=== PATIENT | male | born 1955 | race Caucasian/White ===

== ENCOUNTER → 2016-07-23 | Outpatient (CLI) | payer BC ==
[2016-07-23 09:44] LABS: ALT/SGPT 65 U/L (12-78); BLOOD UREA NITROGEN 24 mg/dl (7-18); BUN/CREATININE RATIO 18.7 (10-20); CALCIUM 8.9 mg/dl (8.5-10.1); CARBON DIOXIDE 27 mmol/L (21-32); CHLORIDE 106 mmol/L (98-107); CHOLESTEROL 149 mg/dl (0-200); GLUCOSE 127 mg/dl (70-99); POTASSIUM 3.7 mmol/L (3.5-5.1); SODIUM 143 mmol/L (136-145)
[2016-07-23 09:47] LABS: ALB/GLOB RATIO 1.1 (0.9-2); ALKALINE PHOSPHATASE 50 U/L (45-117); AST/SGOT 38 U/L (15-37); CHOLESTEROL/HDL RATIO 3.6; HDL CHOLESTEROL 41 mg/dl; LDL CHOLESTEROL CALCULATED 89 mg/dl; TRIGLYCERIDES 96 mg/dl (0-150); VERY LOW DENSITY LIPOPROT CALC 19 mg/dl
[2016-07-23 09:48] LABS: ESTIMATED AVERAGE GLUCOSE 126 mg/dl; HA1C FLAG Normal (Normal)
== END | disposition home or self-care (01) ==
LOC: C.LAB1850 08:06
PROVIDERS: ATTEND Family Medicine
DX: I10 Essential (primary) hypertension (principal); R73.03 Prediabetes; R74.0 Nonspecific elevation of levels of transaminase and lactic acid dehydrogenase [LDH]; E78.5 Hyperlipidemia, unspecified

== ENCOUNTER 2020-12-27 13:27 | Inpatient (IN) ==
[2020-12-27 15:13] LABS: Basophils # (auto) 0.02 K/uL (0-0.2); Basophils % (auto) 0.3 %; Eosinophils # (auto) 0.17 K/uL (0-0.5); Hematocrit (blood only) 39.9 % (42-52); Hemoglobin 13.7 g/dL (14.0-18.0); Immature Granulocytes # (auto) 0.01 K/uL (0.00-0.02); Immature Granulocytes % (auto) 0.2 %; Lymphocytes # (auto) 1.14 K/uL (1.2-3.4); Lymphocytes % (auto) 19.8 %; Mean Corpuscular Hemoglobin 31.9 pg (25-34); Mean Corpuscular Hgb Conc 34.3 g/dL (32-36); Mean Platelet Volume 10.3 fL (7.4-10.4); Monocytes # (auto) 0.71 K/uL (0.11-0.59); Monocytes % (auto) 12.3 %; Neutrophils % (auto) 64.4 %; Platelet Count 241 K/uL (130-400); RDW Coefficient of Variation 13.7 % (11.5-14.5); RDW Standard Deviation 46.8 fL (36.4-46.3); Red Blood Count 4.29 M/uL (4.7-6.1); White Blood Count 5.75 K/uL (4.8-10.8)
[2020-12-27 15:23] LABS: Partial Thromboplastin Ratio 0.9; Partial Thromboplastin Time 24.8 Seconds (21.0-31.0); Prothrombin Time 10.2 Seconds (9.0-12.0)
[2020-12-27 15:33] LABS: Albumin Level 3.9 gm/dl (3.4-5.0); Calcium 9.4 mg/dl (8.5-10.1); Creatinine Clr Calc Pharmacy 55.9 ml/min; Est GFR (Non-African American) 42.3 ml/min; Magnesium 2.1 mg/dl (1.8-2.4); Potassium 4.3 mmol/L (3.5-5.1)
[2020-12-27 15:40] LABS: Albumin Globulin Ratio 0.9 (0.9-2); Bilirubin,Total 1.5 mg/dl (0.2-1); Globulin 4.2 gm/dl (2.5-4.0); Total Protein 8.1 gm/dl (6.4-8.2); Troponin I 0.196 ng/ml (0-0.045)
--- NOTE | 2020-12-27 15:46 | Emergency Department Note ---
Impression & Plan Hypoxia, Non-ST elevation [place] (NSTEMI), Breathlessness, Dizziness, Pulmonary embolism ED Provider Note Provider: Matthew Camacho MD DATE OF SERVICE: 12/27/2020 CHIEF COMPLAINT: Short of breath, dizzy HISTORY OF PRESENT ILLNESS: Patient is a 65-year-old gentleman history of CKD, hypertension, hepatic steatosis presenting here today reporting over the past 5 days has developed some intermittent episodes of dizziness. States on Wednesday he became quite unsteady and was holding onto things but did fall to the ground. States he not lose consciousness or strike his head. Injured both of his feet states his right foot healed pretty well but the left top of his foot hurts some. Has been ambulatory but not using a cane to help steady himself. Wednesday, Wednesday, and things were very minimal he reports. Today however he went out for lunch at work and both going to the restaurant as well as coming back from the restaurant back to work felt very dizzy as well as now developed significant shortness of breath. This was new. Previously did not have any shortness of breath. Denies any chest pain. Denies any nausea or vomiting. Denies any falls today. Given his shortness of breath called a coworker who called an ambulance for him to come here. Denies significant leg swelling otherwise. Does report in the past he has some orthostasis issues related to his blood pressure medicine but this is changed several months ago and has not had recurrence. States prickly today the dizziness and now shortness of breath did not maggy very quickly until he rested. Denies any nu mbness or weakness. Denies any tinnitus. Denies recent fevers. States he has been vaccinated for Covid previously. REVIEW OF SYSTEMS: A total of 10 review of systems was obtained and negative except as stated above in the HPI. PAST MEDICAL HISTORY: As noted above MEDICATIONS: Reviewed home medications SOCIAL HISTORY: Non-smoker, lives at home Family history: Father with cardiac disease, mother with history of VTE PHYSICAL EXAM: GENERAL: alert and oriented in no acute distress on stretcher Head: normocephalic and atraumatic EYES: No injection, discharge or icterus. PERRL NECK: Trachea midline. Supple. ENT: Mucous membranes pink and moist. LUNGS: Airway patent. No retractions. Breath sounds clear HEART: Regular tachycardic rate and rhythm. No chest wall tenderness ABDOMEN: Soft and non-tender, without guarding or rebound. SKIN: Acyanotic, warm, dry, without rashes EXTREMITIES: Without swelling, tenderness or deformity except for some mild partially healed bruising of the left anterior MTP area and medial arch to the dorsum of the first and second left toes. No obvious deformity. No ankle tenderness the bilateral ankles. NEUROLOGICAL: No focal deficits. No aphasia. No facial droop or slurred speech. EK bpm normal sinus rhythm. No PVC or PAC. No acute ST segment elevation noted or depression. QTC 459. CONTINUOUS CARDIAC MONITORING: was ordered and showed a heart rate of 90s-120s bpm in normal sinus rhythm to sinus tachycardia Patient's laboratory studies and imaging reviewed. Differential includes Reactive airway disease, pneumonia, pneumothorax, COPD, CHF, infections, cardiac ischemia, pulmonary embolism, musculoskeletal, gastrointestinal, as well as other pathologies. IMPRESSION/MEDICAL DECISION MAKING: Patient is a complaining of dizziness on Wednesday and then again recurrent today now with shortness of breath with ambulation. Describes a minimal fall the other day but a little bit of persistent left foot pain. No obvious deformity l ower suspicion for significant injury but x-rays obtained of the foot. X-rays question possible base lucency at the fourth metatarsal but no significant tenderness here on exam believe is likely artifactual. Discussed with the patient. Denies other infectious symptomatologies. Noted to be hypoxic here on room air. CKD but with the hypoxia as well as an elevated troponin of blood work concern for PE and sent for CT scan here as well as a CT of the head exclude intercranial abnormality. EKG without STEMI findings. Patient again denies any episodes currently or in the recent past of chest discomfort. Benign abdomen otherwise. Covid test completed for thoroughness and was negative. Que stion of possible pulmonary or cardiac etiology of his dizziness and shortness of breath today. Chest x-ray appears clear per radiology and my review the image. CT head per radiologist acute findings. CT of the chest shows evidence of significant bilateral PEs. With the mildly elevated troponin and his hypoxia this makes clinical sense. We will start heparin bolus and drip. Discussed with the patient and will need further care here at the hospital. The hospitalist was contacted. DIAGNOSIS: NSTEMI, shortness of breath, hypoxia, bilateral PEs DISPOSITION: Hospitalist will evaluate Patient was agreeable with this plan. Critical Care I have personally spent 36 minutes of critical care time in the direct management of this patient. This includes bedside care, interpretation of diagnostic studies, and testing, discussion with consultants, patient, and other required patient management activities. These 36 minutes is in excess of all separately billable procedures. Past Med/Surg History Surgical History History of mandibular surgery Family History Mother Stroke Father Myocardial infarction Brother Diabetes Denies family history of Ovarian cancer Prostate cancer Breast cancer Lung cancer Hypertension Social History Smoking Status: Never smoker Hx Alcohol Use: Yes (social) Hx Substance Use: No Preferred Language: Vietnamese Communication Ability: Effective Visual Impairment: No Limitations Hearing Ability: Normal marital status: Single Current Living Situation: Alone current occupational status: employed Feels Safe at Home: Yes Childhood Exposure to Second-Hand Smoke: Yes caffeine: Yes Dental Care, Regularly: Yes Physical Activity Frequency: Does not Exercise Seatbelt Use: always Sunscreen Use: Yes Allergies Allergies Allergy/AdvReac Type Severity Reaction Status Date / Time No Known Allergies Allergy Unknown Verified 12/27/20 16:11 Home Meds Home Medications Medication Instructions Recorded Confirmed aspirin 81 mg tablet,delayed 81 mg PO QAM 05/19/19 12/27/20 release multivitamin 1 tab PO QAM 10/20/19 12/27/20 diclofenac sodium 2 g TOPICAL BID 12/27/20 12/27/20 hydrochlorothiazide 25 mg PO QAM 12/27/20 12/27/20 naproxen sodium [Aleve] 440 mg PO Q12H PRN 12/27/20 12/27/20 telmisartan 80 mg PO PM 12/27/20 12/27/20 Previous Rx's Medication Instructions Recorded simvastatin 20 mg tablet 20 mg PO QPM #90 tab 01/25/20 labetalol 300 mg tablet 300 mg PO BID #180 tab 07/08/20 Results & Data (ED) Vital Signs Vital Signs - 24 hr 12/27/20 13:38 12/27/20 13:40 12/27/20 13:44 Temperature 36.6 C Temperature Source Oral Pulse Rate 113 H Pulse Rate from SpO2 Sensor Pulse Strength [Left Foot] Pulse Strength [Right Foot] Respiratory Rate 20 Respiratory Effort / Characteristics Non-Labored Spontaneous Non-Labored Respiratory Depth Normal Normal Respiratory Pattern Regular Blood Pressure 136/82 Blood Pressure Mean 100 Pulse Oximetry 87 L 99 Oxygen Delivery Method Room Air Nasal Cannula Oxygen Flow Rate 2 Sepsis Recent Fever Within 48 Hours No Sepsis New/Unexplained Change in Mental Status N/A Sepsis Action Taken by Nursing No Action Required Pulse Oximetry Post Tiitration 99 12/27/20 14:00 12/27/20 14:30 12/27/20 15:00 Temperature Temperature Source Pulse Rate 102 H 103 H 105 H Pulse Rate from SpO2 Sensor 101 H 103 H 105 H Pulse Strength [Left Foot] Pulse Strength [Right Foot] Respiratory Rate 18 15 14 Respiratory Effort / Characteristics Respiratory Depth Respiratory Pattern Blood Pressure 125/84 130/93 Blood Pressure Mean 97 105 Pulse Oximetry 99 98 99 Oxygen Delivery Method Nasal Cannula Nasal Cannula Oxygen Flow Rate Sepsis Recent Fever Within 48 Hours Sepsis New/Unexplained Change in Mental Status Sepsis Action Taken by Nursing Pulse Oximetry Post Tiitration 12/27/20 15:09 12/27/20 15:30 12/27/20 16:00 Temperature Temperature Source Pulse Rate 109 H 109 H Pulse Rate from SpO2 Sensor 108 H 110 H Pulse Strength [Left Foot] Pulse Strength [Right Foot] Respiratory Rate 12 14 Respiratory Effort / Characteristics Respiratory Depth Respiratory Pattern Blood Pressure 134/94 Blood Pressure Mean 107 Pulse Oximetry 99 98 Oxygen Delivery Method Room Air Oxygen Flow Rate Sepsis Recent Fever Within 48 Hours Sepsis New/Unexplained Change in Mental Status Sepsis Action Taken by Nursing Pulse Oximetry Post Tiitration 12/27/20 16:01 12/27/20 16:30 12/27/20 16:31 Temperature Temperature Source Pulse Rate 112 H 106 H 105 H Pulse Rate from SpO2 Sensor 112 H 105 H 104 H Pulse Strength [Left Foot] Pulse Strength [Right Foot] Respiratory Rate 14 19 Respiratory Effort / Characteristics Respiratory Depth Respiratory Pattern Blood Pressure 115/89 Blood Pressure Mean 97 Pulse Oximetry 98 98 99 Oxygen Delivery Method Oxygen Flow Rate Sepsis Recent Fever Within 48 Hours Sepsis New/Unexplained Change in Mental Status Sepsis Action Taken by Nursing Pulse Oximetry Post Tiitration 12/27/20 17:00 12/27/20 17:01 12/27/20 17:30 Temperature Temperature Source Pulse Rate 105 H 110 H 107 H Pulse Rate from SpO2 Sensor 106 H 109 H 109 H Pulse Strength [Left Foot] Pulse Strength [Right Foot] Respiratory Rate 14 23 19 Respiratory Effort / Characteristics Respiratory Depth Respiratory Pattern Blood Pressure 136/106 H 127/96 Blood Pressure Mean 116 106 Pulse Oximetry 97 98 98 Oxygen Delivery Method Oxygen Flow Rate Sepsis Recent Fever Within 48 Hours Sepsis New/Unexplained Change in Mental Status Sepsis Action Taken by Nursing Pulse Oximetry Post Tiitration 12/27/20 17:31 12/27/20 18:00 12/27/20 18:01 Temperature Temperature Source Pulse Rate 109 H 110 H 109 H Pulse Rate from SpO2 Sensor 110 H 110 H 109 H Pulse Strength [Left Foot] Pulse Strength [Right Foot] Respiratory Rate 22 17 Respiratory Effort / Characteristics Respiratory Depth Respiratory Pattern Blood Pressure 130/98 Blood Pressure Mean 108 Pulse Oximetry 98 98 99 Oxygen Delivery Method Oxygen Flow Rate Sepsis Recent Fever Within 48 Hours Sepsis New/Unexplained Change in Mental Status Sepsis Action Taken by Nursing Pulse Oximetry Post Tiitration 12/27/20 19:00 12/27/20 19:04 12/27/20 19:05 Temperature Temperature Source Pulse Rate 136 H 114 H 112 H Pulse Rate from SpO2 Sensor 114 H 113 H Pulse Strength [Left Foot] Weak Pulse Strength [Right Foot] Normal Respiratory Rate 18 24 24 Respiratory Effort / Characteristics Non-Labored Spontaneous Respiratory Depth Normal Respiratory Pattern Regular Blood Pressure 153/96 H 141/103 H Blood Pressure Mean 115 115 Pulse Oximetry 98 98 98 Oxygen Delivery Method Room Air Room Air Nasal Cannula Oxygen Flow Rate 2 Sepsis Recent Fever Within 48 Hours Sepsis New/Unexplained Change in Mental Status Sepsis Action Taken by Nursing Pulse Oximetry Post Tiitration 12/27/20 19:30 12/27/20 20:00 12/27/20 20:27 Temperature Temperature Source Pulse Rate 111 H 103 H 107 H Pulse Rate from SpO2 Sensor 111 H 104 H 100 H Pulse Strength [Left Foot] Pulse Strength [Right Foot] Respiratory Rate 25 H 20 12 Respiratory Effort / Characteristics Respiratory Depth Respiratory Pattern Blood Pressure 144/108 H 147/105 H 131/86 Blood Pressure Mean 120 119 101 Pulse Oximetry 98 96 97 Oxygen Delivery Method Nasal Cannula Nasal Cannula Nasal Cannula Oxygen Flow Rate 2 2 2 Sepsis Recent Fever Within 48 Hours Sepsis New/Unexplained Change in Mental Status Sepsis Action Taken by Nursing Pulse Oximetry Post Tiitration 12/27/20 20:30 12/27/20 20:32 12/27/20 21:00 Temperature Temperature Source Pulse Rate 89 96 H 106 H Pulse Rate from SpO2 Sensor 107 H 105 H 104 H Pulse Strength [Left Foot] Pulse Strength [Right Foot] Respiratory Rate 15 22 12 Respiratory Effort / Characteristics Respiratory Depth Respiratory Pattern Blood Pressure 154/100 H 143/100 H 154/109 H Blood Pressure Mean 118 114 124 Pulse Oximetry 98 98 98 Oxygen Delivery Method Nasal Cannula Nasal Cannula Nasal Cannula Oxygen Flow Rate 2 2 2 Sepsis Recent Fever Within 48 Hours Sepsis New/Unexplained Change in Mental Status Sepsis Action Taken by Nursing Pulse Oximetry Post Tiitration Laboratory Data Result diagrams: 12/27/20 15:02 12/27/20 15:02 Lab Results 12/27/20 12/27/20 12/27/20 Range/Units 15:02 15:02 15:02 WBC 5.75 (4.8-10.8) K/uL RBC 4.29 L (4.7-6.1) M/uL Hgb 13.7 L (14.0-18.0) g/dL Hct 39.9 L (42-52) % MCV 93.0 (80-100) fL MCH 31.9 (25-34) pg MCHC 34.3 (32-36) g/dL RDW Std Deviation 46.8 H (36.4-46.3) fL RDW Coeff of Marina 13.7 (11.5-14.5) % Plt Count 241 (130-400) K/uL MPV 10.3 (7.4-10.4) fL Immature Gran % (Auto) 0.2 % Neut % (Auto) 64.4 % Lymph % (Auto) 19.8 % [place] % (Auto) 12.3 % Eos % (Auto) 3.0 % Baso % (Auto) 0.3 % Neut # (Auto) 3.70 (1.4-6.5) K/uL Lymph # (Auto) 1.14 L (1.2-3.4) K/uL [place] # (Auto) 0.71 H (0.11-0.59) K/uL Eos # (Auto) 0.17 (0-0.5) K/uL Baso # (Auto) 0.02 (0-0.2) K/uL Immature Gran # (Auto) 0.01 (0.00-0.02) K/uL PT 10.2 (9.0-12.0) Seconds INR 1.0 (0.9-1.1) APTT 24.8 (21.0-31.0) Seconds PTT Ratio 0.9 Sodium 138 (136-145) mmol/L Potassium 4.3 (3.5-5.1) mmol/L Chloride 105 (98-107) mmol/L Carbon Dioxide 29 (21-32) mmol/L Anion Gap 5.0 (3-11) BUN 40 H (7-18) mg/dl Creatinine 1.68 H (0.6-1.4) mg/dl Est Cr Clr Drug Dosing 55.9 ml/min Est GFR ( Amer) 49.0 ml/min Est GFR (Non-Af Amer) 42.3 ml/min BUN/Creatinine Ratio 24.0 H (10-20) Glucose 106 H (70-99) mg/dl Calcium 9.4 (8.5-10.1) mg/dl Magnesium 2.1 (1.8-2.4) mg/dl Total Bilirubin 1.5 H (0.2-1) mg/dl AST 18 (15-37) U/L ALT 29 (12-78) U/L Alkaline Phosphatase 50 (45-117) U/L Troponin I 0.196 H* (0-0.045) ng/ml NT-Pro-B Natriuret Pep 91 (0-900) pg/ml Total Protein 8.1 (6.4-8.2) gm/dl Albumin 3.9 (3.4-5.0) gm/dl Globulin 4.2 H (2.5-4.0) gm/dl Albumin/Globulin Ratio 0.9 (0.9-2) Urine Color Urine Appearance (Clear) Urine pH (4.5-7.5) Ur Specific Fossil (1.000-1.030) Urine Protein (Negative) Urine Glucose (UA) (Negative) Urine Ketones (Negative) Urine Blood (Negative) Urine Nitrite (Negative) Urine Bilirubin (Negative) Urine Urobilinogen (Negative) Ur Leukocyte Esterase (Negative) COVID-19 Eval Order SARS-CoV-2 (PCR) (Negative) 12/27/20 12/27/20 12/27/20 Range/Units 16:00 16:00 19:16 WBC (4.8-10.8) K/uL RBC (4.7-6.1) M/uL Hgb (14.0-18.0) g/dL Hct (42-52) % MCV (80-100) fL MCH (25-34) pg MCHC (32-36) g/dL RDW Std Deviation (36.4-46.3) fL RDW Coeff of Marina (11.5-14.5) % Plt Count (130-400) K/uL MPV (7.4-10.4) fL Immature Gran % (Auto) % Neut % (Auto) % Lymph % (Auto) % [place] % (Auto) % Eos % (Auto) % Baso % (Auto) % Neut # (Auto) (1.4-6.5) K/uL Lymph # (Auto) (1.2-3.4) K/uL [place] # (Auto) (0.11-0.59) K/uL Eos # (Auto) (0-0.5) K/uL Baso # (Auto) (0-0.2) K/uL Immature Gran # (Auto) (0.00-0.02) K/uL PT (9.0-12.0) Seconds INR (0.9-1.1) APTT (21.0-31.0) Seconds PTT Ratio Sodium (136-145) mmol/L Potassium (3.5-5.1) mmol/L Chloride (98-107) mmol/L Carbon Dioxide (21-32) mmol/L Anion Gap (3-11) BUN (7-18) mg/dl Creatinine (0.6-1.4) mg/dl Est Cr Clr Drug Dosing ml/min Est GFR ( Amer) ml/min Est GFR (Non-Af Amer) ml/min BUN/Creatinine Ratio (10-20) Glucose (70-99) mg/dl Calcium (8.5-10.1) mg/dl Magnesium (1.8-2.4) mg/dl Total Bilirubin (0.2-1) mg/dl AST (15-37) U/L ALT (12-78) U/L Alkaline Phosphatase (45-117) U/L Troponin I (0-0.045) ng/ml NT-Pro-B Natriuret Pep (0-900) pg/ml Total Protein (6.4-8.2) gm/dl Albumin (3.4-5.0) gm/dl Globulin (2.5-4.0) gm/dl Albumin/Globulin Ratio (0.9-2) Urine Color Yellow Urine Appearance Clear (Clear) Urine pH 5.0 (4.5-7.5) Ur Specific Fossil > 1.045 H (1.000-1.030) Urine Protein Negative (Negative) Urine Glucose (UA) Negative (Negative) Urine Ketones Trace H (Negative) Urine Blood Negative (Negative) Urine Nitrite Negative (Negative) Urine Bilirubin Negative (Negative) Urine Urobilinogen Negative (Negative) Ur Leukocyte Esterase Negative (Negative) COVID-19 Eval Order Covid19 at [facility] SARS-CoV-2 (PCR) NEGATIVE (Negative) Administered Medications Heparin Sodium/Dextrose (Heparin Sodium/Dextrose) 25,000 units in 500 mls @ 32 mls/hr IV .[id number] [facility]; Protocol Stop: 01/26/21 17:41 Last Admin: 12/27/20 17:49 Dose: 1,600 units/hr, 32 mls/hr Documented by: [id number] Cosigned by: [id number] Discontinued Medications Heparin Sodium (Porcine) (Heparin Sod (Porcine) 1000 Unit/Ml) 1 units IV NOW ONE Stop: 12/27/20 17:43 Last Admin: 12/27/20 17:48 Dose: 7,000 units Documented by: [id number] Cosigned by: [id number] Ioversol (Optiray 320 125ml) 120 ml IV ONCE ONE Stop: 12/27/20 17:11 Last Admin: 12/27/20 17:10 Dose: 120 ml Documented by: [id number] Imaging Data Radiologist's Impression: Foot X-Ray 12/27/20 14:56 XR foot LT min 3V routine CLINICAL HISTORY: Left foot pain status post trauma COMPARISON: None. DISCUSSION: There is an oblique lucency through the base the fourth metatarsal, visualized on only one projection. This could be artifactual. Correlate with the patient's site of pain is recommended. There are moderate degenerative changes within the midfoot. There are no dislocations. There is Achilles insertional spurring. IMPRESSION: 1. Oblique lucencies the base the fourth metatarsal visualized on only one projection. Correlation with the patient's site of pain will be necessary to help differentiate a subtle fracture from a projectional artifact. ACT 112: Negative or not required by law. Electronically signed by: Alli Song M.D. 12/27/2020 3:[address] 12/27/20 14:56 CT SCAN OF THE BRAIN WITHOUT IV CONTRAST CLINICAL HISTORY: Fall. Dizziness. COMPARISON STUDY: No priors. TECHNIQUE: Unenhanced axial CT scan of the brain is performed from the vertex to the skull base. A dose lowering technique was utilized adhering to the principles of ALARA. FINDINGS: Brain parenchyma: The brain parenchyma is normal in appearance. There is no hemorrhage, mass effect, or evidence of acute territorial ischemia by CT criteria. Chandler-white matter differentiation is preserved. No extra-axial fluid collection is seen. Ventricles, sulci, cisterns: Normal in configuration. Intracranial vasculature: The visualized intracranial vasculature at the skull base is normal in appearance. Calvarium: There is no depressed calvarial fracture. Soft tissues: There is minimal right posterior frontal scalp contusion. Sinuses and mastoids: The visualized paranasal sinuses are clear. The mastoid air cells are well pneumatized. Orbits: The bony orbits are grossly intact. IMPRESSION: There is no hemorrhage, mass effect, or evidence of acute ter ritorial ischemia by CT criteria. ACT 112: Negative or not required by law. Electronically signed by: fErain Stanley M.D. 12/27/2020 5:21 PM Chest CTA 12/27/20 14:57 CT ANGIOGRAM OF THE CHEST CLINICAL HISTORY: Dyspnea. Hypoxia. COMPARISON STUDY: Chest x-ray dated 12/27/2020. TECHNIQUE: Following the IV administration of 120 cc of Optiray 320, CT an giogram of the chest was performed from the upper abdomen to the thoracic inlet utilizing the pulmonary embolus protocol. Images are reviewed in the axial, sagittal, and coronal planes. 3-D MIPS images are created and assessed. IV contrast was administered without complication. A dose lowering technique was utilized adhering to the principles of ALARA. CT DOSE: 2287.03 mGy.cm FINDINGS: Thyroid: Imaged portions of the thyroid gland are normal in size and attenuation. Thoracic aorta: There is mild atherosclerotic calcification of the thoracic aorta, which is normal in caliber and demonstrates 4-vessel variant arch anatomy. No dissection is seen. Pulmonary vasculature: The pulmonary trunk is normal in caliber. There is pulmonary embolus within the distal right main pulmonary artery. This extends into the right upper, right middle, and right lower lobar pulmonary arteries into segmental and subsegmental branches. There is thrombus within the distal left main pulmonary artery. This extends into the left upper and left lower lobar pulmonary arteries into segmental and subsegmental branches. Heart: The heart is normal in size and without pericardial effusion. There are scattered coronary artery calcifications. Lungs and pleural spaces: The lungs and pleural spaces are clear. The trachea and central airways are patent. Mediastinum: There is no mediastinal lymphadenopathy. Antonella: Clear. Axillae: There is no axillary lymphadenopathy. Upper abdomen: There is a small hiatal hernia. Partially visualized upper abdominal viscera is within normal limits. Skeletal structures: No lytic or blastic bony lesions are seen. IMPRESSION: 1. Extensive bilateral pulmonary embolus. 2. There is no airspace consolidation or pleural effusion. ACT 112: Negative or not required by law. Electronically signed by: Efrain Stanley M.D. 12/27/2020 5:25 PM Chest X-Ray 12/27/20 14:57 XR chest 1V portable HISTORY: 65 years-old Male Dyspnea acute shortness of breath COMPARISON: None TECHNIQUE: Portable AP view of the chest FINDINGS: Cardiac mediastinal and hilar silhouettes are within normal limits. Mild right h emidiaphragm elevation. No pneumothorax, pleural effusion, airspace consolidation or overt pulmonary edema. Degenerative changes of the shoulders and spine. IMPRESSION: No acute process. ACT 112: Negative or not required by law. The above report was generated using voice recognition software. It may contain grammatical, syntax or spelling errors. Electronically signed by: Didier Noriega M.D. 12/27/2020 3:56 PM Discharge Plan Visit Data Chief Complaint: Shortness of Breath/Dyspnea ED Provider: Matthew Camacho Discharge Problem: Hypoxia, Non-ST elevation [place] (NSTEMI), Breathlessness, Dizziness, Pulmonary embolism Patient Disposition: Being Evaluated by Hospitalist Forms Stand Alone Forms: [facility] Prescriptions Prescriptions: No Action simvastatin [Zocor] 20 mg tablet 20 mg PO QPM Qty: 90 RF: 3 labetalol 300 mg tablet 300 mg PO BID Qty: 180 RF: 3 aspirin [Adult Low Dose Aspirin] 81 mg tablet,delayed release (DR/EC) 81 mg PO QAM RF: 0 multivitamin [Multiple Vitamins] Tablet 1 tab PO QAM RF: 0 naproxen sodium [Aleve] 220 mg Tablet 440 mg PO Q12H PRN (Reason: Pain) RF: 0 diclofenac sodium 1 % Gel 2 g TOPICAL BID RF: 0 telmisartan 80 mg tablet 80 mg PO PM RF: 0 hydrochlorothiazide 25 mg tablet 25 mg PO QAM RF: 0 Referrals Referrals: Jaylen Pagan DO [Primary Care Provider] - Discharge Problem: Pulmonary embolism Qualifiers: Pulmonary embolism type: unspecified Chronicity: acute Acute cor pulmonale presence: with acute cor pulmonale Qualified Code(s): I26.09 - Other pulmonary embolism with acute cor pulmonale
--- NOTE | 2020-12-27 15:57 | XRay Report ---
XR chest 1V portable HISTORY: 65 years-old Male Dyspnea acute shortness of breath COMPARISON: None TECHNIQUE: Portable AP view of the chest FINDINGS: Cardiac mediastinal and hilar silhouettes are within normal limits. Mild right hemidiaphragm elevatio n. No pneumothorax, pleural effusion, airspace consolidation or overt pulmonary edema. Degenerative c hanges of the shoulders and spine. IMPRESSION: No acute process. ACT 112: Negative or not required by law. The above report was generated using voice recognition software. It may contain grammatical, syntax o r spelling errors. Electronically signed by: Didier Noriega M.D. 12/27/2020 3:56 PM
--- NOTE | 2020-12-27 15:58 | XRay Report ---
XR foot LT min 3V routine CLINICAL HISTORY: Left foot pain status post trauma COMPARISON: None. DISCUSSION: There is an oblique lucency through the base the fourth metatarsal, visualized on only on e projection. This could be artifactual. Correlate with the patient's site of pain is recommended. Th ere are moderate degenerative changes within the midfoot. There are no dislocations. There is [place] insertional spurring. IMPRESSION: 1. Oblique lucencies the base the fourth metatarsal visualized on only one projection. Correlation wi th the patient's site of pain will be necessary to help differentiate a subtle fracture from a projec tional artifact. ACT 112: Negative or not required by law. Electronically signed by: Alli Song M.D. 12/27/2020 3:57 PM
[2020-12-27] MEDS ORDERED: OPTIRAY 320 125ml IV ONE (17:10)
--- NOTE | 2020-12-27 17:22 | CT Scan Report ---
CT SCAN OF THE BRAIN WITHOUT IV CONTRAST CLINICAL HISTORY: Fall. Dizziness. COMPARISON STUDY: No priors. TECHNIQUE: Unenhanced axial CT scan of the brain is performed from the vertex to the skull base. A d ose lowering technique was utilized adhering to the principles of ALARA. FINDINGS: Brain parenchyma: The brain parenchyma is normal in appearance. There is no hemorrhage, mass effect, or evidence of acute territorial ischemia by CT criteria. Chandler-white matter differentiation is preser glynn. No extra-axial fluid collection is seen. Ventricles, sulci, cisterns: Normal in configuration. Intracranial vasculature: The visualized intracranial vasculature at the skull base is normal in appe arance. Calvarium: There is no depressed calvarial fracture. Soft tissues: There is minimal right posterior frontal scalp contusion. Sinuses and mastoids: The visualized paranasal sinuses are clear. The mastoid air cells are well pneu matized. Orbits: The bony orbits are grossly intact. IMPRESSION: There is no hemorrhage, mass effect, or evidence of acute territorial ischemia by CT cri teria. ACT 112: Negative or not required by law. Electronically signed by: Efrain Stanley M.D. 12/27/2020 5:21 PM
--- NOTE | 2020-12-27 17:26 | CT Scan Report ---
CT ANGIOGRAM OF THE CHEST CLINICAL HISTORY: Dyspnea. Hypoxia. COMPARISON STUDY: Chest x-ray dated 12/27/2020. TECHNIQUE: Following the IV administration of 120 cc of Optiray 320, CT angiogram of the chest was pe rformed from the upper abdomen to the thoracic inlet utilizing the pulmonary embolus protocol. Images are reviewed in the axial, sagittal, and coronal planes. 3-D MIPS images are created and assessed. I V contrast was administered without complication. A dose lowering technique was utilized adhering to the principles of ALARA. CT DOSE: 2287.03 mGy.cm FINDINGS: Thyroid: Imaged portions of the thyroid gland are normal in size and attenuation. Thoracic aorta: There is mild atherosclerotic calcification of the thoracic aorta, which is normal in caliber and demonstrates 4-vessel variant arch anatomy. No dissection is seen. Pulmonary vasculature: The pulmonary trunk is normal in caliber. There is pulmonary embolus within th e distal right main pulmonary artery. This extends into the right upper, right middle, and right lowe r lobar pulmonary arteries into segmental and subsegmental branches. There is thrombus within the dis quique left main pulmonary artery. This extends into the left upper and left lower lobar pulmonary arter ies into segmental and subsegmental branches. Heart: The heart is normal in size and without pericardial effusion. There are scattered coronary art reena calcifications. Lungs and pleural spaces: The lungs and pleural spaces are clear. The trachea and central airways are patent. Mediastinum: There is no mediastinal lymphadenopathy. Antonella: Clear. Axillae: There is no axillary lymphadenopathy. Upper abdomen: There is a small hiatal hernia. Partially visualized upper abdominal viscera is within normal limits. Skeletal structures: No lytic or blastic bony lesions are seen. IMPRESSION: 1. Extensive bilateral pulmonary embolus. 2. There is no airspace consolidation or pleural effusion. ACT 112: Negative or not required by law. Electronically signed by: Efrain Stanley M.D. 12/27/2020 5:25 PM
[2020-12-27] MEDS ORDERED: Heparin IV Adult Wt-Based Standard WITH Bolus Protocol IV STA (17:27)
[2020-12-27] MEDS ORDERED: HEPARIN SOD (PORCINE) 1000 UNIT/ML IV ONE (17:42)
[2020-12-27] MEDS: HEPARIN SODIUM/DEXTROSE 25,000 UNITS/500 ML BAG IV SCH (17:49)
[2020-12-27 19:29] LABS: Appearance Urine Clear (Clear); Bilirubin Urine Negative (Negative); Blood Urine Negative (Negative); Color Urine Yellow; Glucose Urine UA Negative (Negative); Ketones Urine Trace (Negative); Leukocyte Esterase Urine Negative (Negative); Nitrite Urine Negative (Negative); Protein Urine Negative (Negative); Specific Gravity Urine > 1.045 (1.000-1.030); Urobilinogen Urine Negative (Negative)
[2020-12-27] MEDS ORDERED: METOPROLOL TARTRATE 1 MG/ML VIAL IV PRN (21:33)
--- NOTE | 2020-12-27 23:24 | Ultrasound Report ---
ULTRASOUND BILATERAL LOWER EXTREMITY VENOUS CLINICAL HISTORY: Pulmonary embolus. COMPARISON STUDY: No priors. TECHNIQUE: Real-time, grayscale, and color Doppler sonography of the deep veins of the right and left lower extremity was performed from the inguinal crease to the calf. Compression and augmentation wer e utilized. FINDINGS: Right lower extremity: There is no sonographic evidence of deep venous thrombosis identified in the r ight lower extremity. The common femoral, superficial femoral, and popliteal veins are patent and nor adrian compressible. The greater saphenous vein and the profunda femoris vein at the junction with the common femoral vein are clear. The visualized calf veins are patent. Left lower extremity: There is occlusive deep venous thrombosis identified in the left posterior tibi al veins. The remaining calf vessels are clear as imaged. The common femoral, superficial femoral, an d popliteal veins are patent and normally compressible. The greater saphenous vein and the profunda f emoris vein at the junction with the common femoral vein are clear. IMPRESSION: 1. There is occlusive deep venous thrombosis identified in the left calf within the posterior tibial veins. 2. No above knee deep venous thrombosis is seen in the left lower extremity. 3. There is no sonographic evidence of deep venous thrombosis identified in the right lower extremity . ACT 112: Negative or not required by law. Electronically signed by: Efrain Stanley M.D. 12/27/2020 11:23 PM
--- NOTE | 2020-12-27 23:29 | History & Physical Report ---
Date of Service December 27, 2020 Assessment & Plan (1) Pulmonary embolism: Bilateral extensive pulmonary emboli/DVT of left lower extremity tibial veins- Continue heparin drip begun in the ED Hypercoagulable work-up, due to family history of his mother having venous thromboembolism Present on Admission?: Yes (2) Deep vein thrombosis (DVT) of tibial vein of left lower extremity: See above Present on Admission?: Yes (3) Hypoxia: Placed on nasal cannula oxygen, titrate to keep pulse ox around 95% Present on Admission?: Yes (4) Non-ST elevation LA (NSTEMI): The patient will be admitted to telemetry for serial cardiac enzymes, serial EKG's, cardiac rhythm monitoring and a 2-D echocardiogram with Dopplers. EKG shows NSR with normal intervals, normal QRS complexes, no ST elevation or depression, and no arrhythmias.. Likely type II LA, supply demand mismatch associated with right ventricular strain Present on Admission?: Yes (5) CKD (chronic kidney disease) stage 3, GFR 30-59 ml/min: Creatinine 1.68 upon admission, with recent range 1.62-1.66. We will avoid use of naproxen due to anticoagulation, and avoiding combination with telmisartan and HCTZ affecting kidney function Present on Admission?: Yes (6) HTN (hypertension): For now, hold telmisartan and HCTZ as noted above. Will increase labetalol from 300 mg p.o. twice daily to 400 mg p.o. twice daily Continue aspirin 81 mg daily Present on Admission?: Yes (7) Hyperlipidemia: Continue simvastatin 20 mg daily Check a fasting lipid panel Present on Admission?: Yes (8) Prediabetes: Glucose 106 upon admission. Would not perform Accu-Cheks unless morning blood sugar appears to be elevated Present on Admission?: Yes Admission and Anticipated Discharge Date Admission Date: December 27, 2020 History of Present Illness Chief Complaint: The patient presents to the emergency department with complaint of intermittent episodes of dizziness over the past 5 days, having fallen to the ground 5 days ago, injuring his bilateral ankles, and today nearly falling as his legs gave way. Primary Care Provider: Jaylen Pagan, DO The patient is a 65-year-old male with a past medical history including CKD stage III, elevated total bilirubin, hepatic steatosis, morbid obesity, prediabe zane, hyperlipidemia, hypertension and arthritis. He reports the ED as for symptoms as noted above. Of note, significant family history includes his mother having history of venous thromboembolism. Symptoms today, in addition to feeling bilateral leg weakness, includes some dyspnea on exertion, and he has been using a cane somewhat for balance. Allergies Allergy/AdvReac Type Severity Reaction Status Date / Time No Known Allergies Allergy Unknown Verified 12/27/20 16:11 Home Medications Medication Instructions Recorded Confirmed Type aspirin 81 mg tablet,delayed 81 mg PO QAM 05/19/19 12/27/20 History release multivitamin 1 tab PO QAM 10/20/19 12/27/20 History simvastatin 20 mg tablet 20 mg PO QPM #90 tab 01/25/20 12/27/20 Rx labetalol 300 mg tablet 300 mg PO BID #180 tab 07/08/20 12/27/20 Rx diclofenac sodium 2 g TOPICAL BID 12/27/20 12/27/20 History hydrochlorothiazide 25 mg PO QAM 12/27/20 12/27/20 History naproxen sodium [Aleve] 440 mg PO Q12H PRN 12/27/20 12/27/20 History telmisartan 80 mg PO PM 12/27/20 12/27/20 History Past Med/Surg History Surgical History History of mandibular surgery Family History Mother Stroke Father Myocardial infarction Brother Diabetes Denies family history of Ovarian cancer Prostate cancer Breast cancer Lung cancer Hypertension Social History Smoking Status: Former smoker Do You Dip or Chew Tobacco: No; Hx Alcohol Use: No Hx Substance Use: No Preferred Language: Burmese Communication Ability: Effective Visual Impairment: No Limitations Hearing Ability: Normal Beliefs That Will Affect Care: None marital status: Single Current Living Situation: Alone current occupational status: employed Other Information That Helps Us Care for You: No Feels Safe at Home: Yes Safety Concerns: Feels Safe At This Time Childhood Exposure to Second-Hand Smoke: Yes caffeine: Yes Dental Care, Regularly: Yes Physical Activity Frequency: Does not Exercise Seatbelt Use: always Sunscreen Use: Yes Assistive Devices: None and Cane Assistive Devices Comment: can only since fall on wednesday prior to admit Review of Systems Review of Systems: The patient denies chest pain, palpitations, cough, lower extremity swelling, sore throat, fevers, chills, sweats, nausea, vomiting, diarrhea , constipation, abdominal pain, pelvic pain, blood in urine or stool, dysuria, urinary frequency or urgency, memory loss, loss of consciousness, rash, abnormal bruising or bleeding, focal or generalized weakness, numbness or tingling in arms, generalized arthralgias or myalgias, back or neck pain, or night sweats. The review of systems is otherwise negative other than for that already noted above, and at least 10 systems have been reviewed. Physical Exam Physical Exam: The patient is awake, alert and oriented 3, well developed and well nourished, normocephalic and atraumatic, lying in bed and in no acute distress. HEENT--PERRL, EOMI, mucous membranes and oropharynx normal. Neck--supple. No JVD. No bruits. Thyroid normal, trachea midline, no adenopathy. Heart--normal S1 and S2. No murmurs, rubs or gallops. Lungs--clear bilaterally, no respiratory distress, no accessory muscle use. Abdomen--normal bowel sounds and soft. Nontender. Nondistended. Morbidly obese Extremities--no cyanosis or clubbing. No edema. Dermatologic--normal skin turgor, normal color, no abnormal lymph nodes, no rash. Neurologic--cranial nerves II through XII grossly intact. Rheumatologic--range of motion limited by body habitus Psychiatric--normal affect. Results & Data Results & Data ([facility]) Vital Signs (Past 12 Hours) Vital Signs Temp Pulse Pulse Resp BP BP Pulse Ox 12/27/20 22:30 102 H 20 148/102 H 98 12/27/20 22:13 110 H 19 134/94 98 12/27/20 22:12 98.4 F 104 H 20 134/94 98 12/27/20 21:42 103 H 16 134/100 98 12/27/20 21:41 107 H 17 133/92 98 12/27/20 21:30 101 H 14 133/110 H 99 12/27/20 21:00 106 H 12 154/109 H 98 12/27/20 20:32 96 H 22 143/100 H 98 12/27/20 20:30 89 15 154/100 H 98 12/27/20 20:27 107 H 12 131/86 97 12/27/20 20:00 103 H 20 147/105 H 96 12/27/20 19:30 111 H 25 H 144/108 H 98 12/27/20 19:05 112 H 24 98 12/27/20 19:04 114 H 24 141/103 H 98 12/27/20 19:00 136 H 18 153/96 H 98 12/27/20 18:01 109 H 17 99 12/27/20 18:00 110 H 130/98 98 12/27/20 17:31 109 H 22 98 12/27/20 17:30 107 H 19 127/96 98 12/27/20 17:01 110 H 23 98 12/27/20 17:00 105 H 14 136/106 H 97 12/27/20 16:31 105 H 19 99 12/27/20 16:30 106 H 115/89 98 12/27/20 16:01 112 H 14 98 12/27/20 16:00 109 H 14 134/94 98 12/27/20 15:30 109 H 12 99 12/27/20 15:00 105 H 14 99 12/27/20 14:30 103 H 15 130/93 98 12/27/20 14:00 102 H 18 125/84 99 12/27/20 13:44 99 12/27/20 13:40 97.9 F 113 H 20 136/82 87 L Laboratory Results Laboratory Results WBC 5.75 K/uL (4.8-10.8) 12/27/20 15:02 RBC 4.29 M/uL (4.7-6.1) L 12/27/20 15:02 Hgb 13.7 g/dL (14.0-18.0) L 12/27/20 15:02 Hct 39.9 % (42-52) L 12/27/20 15:02 MCV 93.0 fL (80-100) 12/27/20 15:02 MCH 31.9 pg (25-34) 12/27/20 15:02 MCHC 34.3 g/dL (32-36) 12/27/20 15:02 RDW Std Deviation 46.8 fL (36.4-46.3) H 12/27/20 15:02 RDW Coeff of [place] 13.7 % (11.5-14.5) 12/27/20 15:02 Plt Count 241 K/uL (130-400) 12/27/20 15:02 MPV 10.3 fL (7.4-10.4) 12/27/20 15:02 Immature Gran % (Auto) 0.2 % 12/27/20 15:02 Neut % (Auto) 64.4 % 12/27/20 15:02 Lymph % (Auto) 19.8 % 12/27/20 15:02 [place] % (Auto) 12.3 % 12/27/20 15:02 Eos % (Auto) 3.0 % 12/27/20 15:02 Baso % (Auto) 0.3 % 12/27/20 15:02 Neut # (Auto) 3.70 K/uL (1.4-6.5) 12/27/20 15:02 Lymph # (Auto) 1.14 K/uL (1.2-3.4) L 12/27/20 15:02 [place] # (Auto) 0.71 K/uL (0.11-0.59) H 12/27/20 15:02 Eos # (Auto) 0.17 K/uL (0-0.5) 12/27/20 15:02 Baso # (Auto) 0.02 K/uL (0-0.2) 12/27/20 15:02 Immature Gran # (Auto) 0.01 K/uL (0.00-0.02) 12/27/20 15:02 PT 10.2 Seconds (9.0-12.0) 12/27/20 15:02 INR 1.0 (0.9-1.1) 12/27/20 15:02 APTT 55.5 Seconds (21.0-31.0) H* 12/28/20 02:03 PTT Ratio 2.1 12/28/20 02:03 Sodium 138 mmol/L (136-145) 12/27/20 15:02 Potassium 4.3 mmol/L (3.5-5.1) 12/27/20 15:02 Chloride 105 mmol/L (98-107) 12/27/20 15:02 Carbon Dioxide 29 mmol/L (21-32) 12/27/20 15:02 Anion Gap 5.0 (3-11) 12/27/20 15:02 BUN 40 mg/dl (7-18) H 12/27/20 15:02 Creatinine 1.68 mg/dl (0.6-1.4) H 12/27/20 15:02 Est Cr Clr Drug Dosing 55.9 ml/min 12/27/20 15:02 Est GFR ( Amer) 49.0 ml/min 12/27/20 15:02 Est GFR (Non-Af Amer) 42.3 ml/min 12/27/20 15:02 BUN/Creatinine Ratio 24.0 (10-20) H 12/27/20 15:02 Glucose 106 mg/dl (70-99) H 12/27/20 15:02 Calcium 9.4 mg/dl (8.5-10.1) 12/27/20 15:02 Magnesium 2.1 mg/dl (1.8-2.4) 12/27/20 15:02 Total Bilirubin 1.5 mg/dl (0.2-1) H 12/27/20 15:02 AST 18 U/L (15-37) 12/27/20 15:02 ALT 29 U/L (12-78) 12/27/20 15:02 Alkaline Phosphatase 50 U/L (45-117) 12/27/20 15:02 Troponin I 0.653 ng/ml (0-0.045) H* 12/27/20 23:56 NT-Pro-B Natriuret Pep 91 pg/ml (0-900) 12/27/20 15:02 Total Protein 8.1 gm/dl (6.4-8.2) 12/27/20 15:02 Albumin 3.9 gm/dl (3.4-5.0) 12/27/20 15:02 Globulin 4.2 gm/dl (2.5-4.0) H 12/27/20 15:02 Albumin/Globulin Ratio 0.9 (0.9-2) 12/27/20 15:02 Urine Color Yellow 12/27/20 19:16 Urine Appearance Clear (Clear) 12/27/20 19:16 Urine pH 5.0 (4.5-7.5) 12/27/20 19:16 Ur Specific [place] > 1.045 (1.000-1.030) H 12/27/20 19:16 Urine Protein Negative (Negative) 12/27/20 19:16 Urine Glucose (UA) Negative (Negative) 12/27/20 19:16 Urine Ketones Trace (Negative) H 12/27/20 19:16 Urine Blood Negative (Negative) 12/27/20 19:16 Urine Nitrite Negative (Negative) 12/27/20 19:16 Urine Bilirubin Negative (Negative) 12/27/20 19:16 Urine Urobilinogen Negative (Negative) 12/27/20 19:16 Ur Leukocyte Esterase Negative (Negative) 12/27/20 19:16 COVID-19 Eval Order Covid19 at [facility] 12/27/20 16:00 SARS-CoV-2 (PCR) NEGATIVE (Negative) 12/27/20 16:00 Impressions Foot X-Ray 12/27/20 14:56 XR foot LT min 3V routine CLINICAL HISTORY: Left foot pain status post trauma COMPARISON: None. DISCUSSION: There is an oblique lucency through the base the fourth metatarsal, visualized on only one projection. This could be artifactual. Correlate with the patient's site of pain is recommended. There are moderate degenerative changes within the midfoot. There are no dislocations. There is Achilles insertional spurring. IMPRESSION: 1. Oblique lucencies the base the fourth metatarsal visualized on only one projection. Correlation with the patient's site of pain will be necessary to help differentiate a subtle fracture from a projectional artifact. ACT 112: Negative or not required by law. Electronically signed by: Alli Song M.D. 12/27/2020 3:[address] 12/27/20 14:56 CT SCAN OF THE BRAIN WITHOUT IV CONTRAST CLINICAL HISTORY: Fall. Dizziness. COMPARISON STUDY: No priors. TECHNIQUE: Unenhanced axial CT scan of the brain is performed from the vertex to the skull base. A dose lowering technique was utilized adhering to the principles of ALARA. FINDINGS: Brain parenchyma: The brain parenchyma is normal in appearance. There is no hemorrhage, mass effect, or evidence of acute territorial ischemia by CT criteria. Chandler-white matter differentiation is preserved. No extra-axial fluid collection is seen. Ventricles, sulci, cisterns: Normal in configuration. Intracranial vasculature: The visualized intracranial vasculature at the skull base is normal in appearance. Calvarium: There is no depressed calvarial fracture. Soft tissues: There is minimal right posterior frontal scalp contusion. Sinuses and mastoids: The visualized paranasal sinuses are clear. The mastoid air cells are well pneumatized. Orbits: The bony orbits are grossly intact. IMPRESSION: There is no hemorrhage, mass effect, or evidence of acute territorial ischemia by CT criteria. ACT 112: Negative or not required by law. Electronically signed by: Efrain Stanley M.D. 12/27/2020 5:21 PM Chest CTA 12/27/20 14:57 CT ANGIOGRAM OF THE CHEST CLINICAL HISTORY: Dyspnea. Hypoxia. COMPARISON STUDY: Chest x-ray dated 12/27/2020. TECHNIQUE: Following the IV administration of 120 cc of Optiray 320, CT angiogram of the chest was performed from the upper abdomen to the thoracic inlet utilizing the pulmonary embolus protocol. Images are reviewed in the axial, sagittal, and coronal planes. 3-D MIPS images are created and assessed. IV contrast was administered without complication. A dose lowering technique was utilized adhering to the principles of ALARA. CT DOSE: 2287.03 mGy.cm FINDINGS: Thyroid: Imaged portions of the thyroid gland are normal in size and attenuation. Thoracic aorta: There is mild atherosclerotic calcification of the thoracic aorta, which is normal in caliber and demonstrates 4-vessel variant arch anatomy. No dissection is seen. Pulmonary vasculature: The pulmonary trunk is normal in caliber. There is pulmonary embolus within the distal right main pulmonary artery. This extends into the right upper, right middle, and right lower lobar pulmonary arteries into segmental and subsegmental branches. There is thrombus within the distal left main pulmonary artery. This extends into the left upper and left lower lobar pulmonary arteries into segmental and subsegmental branches. Heart: The heart is normal in size and without pericardial effusion. There are scattered coronary artery calcifications. Lungs and pleural spaces: The lungs and pleural spaces are clear. The trachea and central airways are patent. Mediastinum: There is no mediastinal lymphadenopathy. Antonella: Clear. Axillae: There is no axillary lymphadenopathy. Upper abdomen: There is a small hiatal hernia. Partially visualized upper abdominal viscera is within normal limits. Skeletal structures: No lytic or blastic bony lesions are seen. IMPRESSION: 1. Extensive bilateral pulmonary embolus. 2. There is no airspace consolidation or pleural effusion. ACT 112: Negative or not required by law. Electronically signed by: Efrain Stanley M.D. 12/27/2020 5:25 PM Chest X-Ray 12/27/20 14:57 XR chest 1V portable HISTORY: 65 years-old Male Dyspnea acute shortness of breath COMPARISON: None TECHNIQUE: Portable AP view of the chest FINDINGS: Cardiac mediastinal and hilar silhouettes are within normal limits. Mild right hemidiaphragm elevation. No pneumothorax, pleural effusion, airspace consolidation or overt pulmonary edema. Degenerative changes of the shoulders and spine. IMPRESSION: No acute process. ACT 112: Negative or not required by law. The above report was generated using voice recognition software. It may contain grammatical, syntax or spelling errors. Electronically signed by: Didier Noriega M.D. 12/27/2020 3:56 PM Venous Doppler Study 12/27/20 21:34 ULTRASOUND BILATERAL LOWER EXTREMITY VENOUS CLINICAL HISTORY: Pulmonary embolus. COMPARISON STUDY: No priors. TECHNIQUE: Real-time, grayscale, and color Doppler sonography of the deep veins of the right and left lower extremity was performed from the inguinal crease to the calf. Compression and augmentation were utilized. FINDINGS: Right lower extremity: There is no sonographic evidence of deep venous thrombosis identified in the right lower extremity. The common femoral, superficial femoral, and popliteal veins are patent and normally compressible. The greater saphenous vein and the profunda femoris vein at the junction with the common femoral vein are clear. The visualized calf veins are patent. Left lower extremity: There is occlusive deep venous thrombosis identified in the left posterior tibial veins. The remaining calf vessels are clear as imaged. The common femoral, superficial femoral, and popliteal veins are patent and normally compressible. The greater saphenous vein and the profunda femoris vein at the junction with the common femoral vein are clear. IMPRESSION: 1. There is occlusive deep venous thrombosis identified in the left calf within the posterior tibial veins. 2. No above knee deep venous thrombosis is seen in the left lower extremity. 3. There is no sonographic evidence of deep venous thrombosis identified in the right lower extremity. ACT 112: Negative or not required by law. Electronically signed by: Efrain Stanley M.D. 12/27/2020 11:23 PM Code Status & VTE Plan Code Status Full code VTE Prophylaxis Plan VTE Prophylaxis will be ordered: Yes PG Care Time/CCT Total # of Minutes Spent Total Time Spent with Patient: Total time spent is greater than 50% in coordination of care (as documented) at patient's floor/unit and/or counseling patient: Coding Level of Care Code 21345 Initial Inpt Care Lvl 3 Diagnoses Pulmonary embolism I26.09 Acute cor pulmonale presence: with acute cor pulmonale Chronicity: acute Pulmonary embolism type: unspecified Deep vein thrombosis (DVT) of tibial vein of left lower extremity I82.442 Hypoxia R09.02 Non-ST elevation LA (NSTEMI) I21.4 CKD (chronic kidney disease) stage 3, GFR 30-59 ml/min N18.30 HTN (hypertension) I10 Hyperlipidemia E78.5 Prediabetes R73.03 (1) Pulmonary embolism Acute cor pulmonale presence: with acute cor pulmonale Chronicity: acute Pulmonary embolism type: unspecified Qualified Code(s): I26.09 - Other pulmonary embolism with acute cor pulmonale
[2020-12-27] MEDS ORDERED: ONDANSETRON INJ 2 MG/ML 2 ML VIAL IV PRN (23:31)
[2020-12-27] MEDS ORDERED: LABETALOL HCL 300 MG TAB PO SCH (23:31)
[2020-12-27] MEDS ORDERED: ACETAMINOPHEN 325 MG TAB PO PRN (23:31)
[2020-12-28] MEDS: DICLOFENAC SOD 1% GEL 100 GM TUBE EXT SCH ×2 (00:09→08:18)
[2020-12-28 02:44] LABS: Partial Thromboplastin Ratio 2.1
[2020-12-28 02:46] LABS: Partial Thromboplastin Time 55.5 Seconds (21.0-31.0)
[2020-12-28 07:38] LABS: Basophils # (auto) 0.03 K/uL (0-0.2); Basophils % (auto) 0.5 %; Eosinophils % (auto) 3.5 %; Hemoglobin 13.7 g/dL (14.0-18.0); Immature Granulocytes # (auto) 0.01 K/uL (0.00-0.02); Immature Granulocytes % (auto) 0.2 %; Lymphocytes # (auto) 1.58 K/uL (1.2-3.4); Lymphocytes % (auto) 27.5 %; Mean Corpuscular Hemoglobin 32.1 pg (25-34); Mean Corpuscular Hgb Conc 35.1 g/dL (32-36); Mean Corpuscular Volume 91.3 fL (80-100); Mean Platelet Volume 10.5 fL (7.4-10.4); Monocytes # (auto) 0.68 K/uL (0.11-0.59); Monocytes % (auto) 11.8 %; Neutrophils # (auto) 3.25 K/uL (1.4-6.5); Neutrophils % (auto) 56.5 %; Platelet Count 227 K/uL (130-400); RDW Coefficient of Variation 13.6 % (11.5-14.5); RDW Standard Deviation 45.4 fL (36.4-46.3); Red Blood Count 4.27 M/uL (4.7-6.1); White Blood Count 5.75 K/uL (4.8-10.8)
[2020-12-28 07:53] LABS: Partial Thromboplastin Ratio 2.1; Prothrombin Time 10.3 Seconds (9.0-12.0)
[2020-12-28 07:54] LABS: Partial Thromboplastin Time 55.7 Seconds (21.0-31.0)
[2020-12-28 08:02] LABS: Albumin Level 3.7 gm/dl (3.4-5.0); BUN Creatinine Ratio 23.8 (10-20); Calcium 9.4 mg/dl (8.5-10.1); Creatinine Clr Calc Pharmacy 65.9 ml/min; Est GFR (African American) 60.6 ml/min; Est GFR (Non-African American) 52.3 ml/min; Magnesium 2.2 mg/dl (1.8-2.4); Potassium 3.9 mmol/L (3.5-5.1)
[2020-12-28 08:11] LABS: Albumin Globulin Ratio 0.9 (0.9-2); Bilirubin,Total 1.4 mg/dl (0.2-1); Globulin 4.2 gm/dl (2.5-4.0); Total Protein 7.9 gm/dl (6.4-8.2); Troponin I 0.393 ng/ml (0-0.045)
[2020-12-28] MEDS ORDERED: LABETALOL HCL 200 MG TAB PO SCH (09:00)
[2020-12-28] MEDS ORDERED: ASPIRIN 81 MG ECTAB PO SCH (09:00)
[2020-12-28] MEDS ORDERED: MULTIVITAMIN TAB PO SCH (09:00)
[2020-12-28] MEDS: HEPARIN SODIUM/DEXTROSE 25,000 UNITS/500 ML BAG IV SCH (09:34)
[2020-12-28] MEDS ORDERED: [UNRECOGNIZED DRUG - REMARK] ONE (11:30)
[2020-12-28] MEDS ORDERED: RIVAROXABAN 15 MG TAB PO SCH (11:30)
--- NOTE | 2020-12-28 15:25 | XCELERA ---
[id number]
--- NOTE | 2020-12-28 16:11 | Discharge Summary ---
Date of Service December 28, 2020 Admission HPI Per Admitting Provider The patient is a 65-year-old male with a past medical history including CKD stage III, elevated total bilirubin, hepatic steatosis, morbid obesity, prediabetes, hyperlipidemia, hypertension and arthritis. He reports the ED as for symptoms as noted above. Of note, significant family history includes his mother having history of venous thromboembolism. Symptoms today, in addition to feeling bilateral leg weakness, includes some dyspnea on exertion, and he has been using a cane somewhat for balance. Principal Diagnosis Bilateral pulmonary emboli, unprovoked, submassive as well as left leg DVT, below the knee Discharge Exam Constitutional WD/WN, vitals as above + obese and comfortable; no acute distress Neck trachea midline, no thyromegaly Respiratory normal respiratory effort, lungs clear to auscultation Cardiovascular RRR, no murmur, no edema Gastrointestinal (Abdomen) normal bowel sounds, soft, nontender, no hepatosplenomegaly Musculoskeletal no cyanosis or clubbing, extremities motor strength 5/5 Skin no rashes, warm and dry Neurologic patellar DTR's 2+ bilat, sensation intact and PERRL, EOMI, accommodation nl, no face palsy, no dysarthria Psychiatric A+Ox3, euthymic affect Lymphatic no cervical or axillary lymphadenopathy Discharge Data Allergies Allergy/AdvReac Type Severity Reaction Status Date / Time No Known Allergies Allergy Unknown Verified 12/27/20 16:11 Consultations 12/27/20 19:52 ED Decision to Admit Stat Ordered Studies 12/27/20 14:56 CT head/brain wo con Stat 12/27/20 14:57 CT angio chest PE protocol Stat 12/27/20 21:34 US venous doppler [facility] Stat Hospital Course (1) Pulmonary embolism: Bilateral extensive pulmonary emboli/DVT of left lower extremity tibial veins (all below the knee) treated with heparin drip, therapeutic since the ED Hypercoagulable work-up, due to family history of his mother having venous thromboembolism (can follow up these results with PCP) his GFR is sufficient for NOAC and his BMI is borderline but Xarelto should be sufficient discussed Xarelto vs Coumadin and he is in agreement with using Xarelto checked copay, it is affordable started on Xarelto 15mg BID while in the hospital, stopped heparin drip 1 hour later patient ambulating in the room, no issues, he did not desaturate without oxygen, HR went up to 110's when walking which would be expected will discharge to home on Xarelto 15mg BID for 21 days then change to 20mg daily will need 6-12 months of anticoagulation instructed to take it easy for the next few days, he works as a computer drafter, sitting most of the day, told him to get up once an hour follow up with PCP, follow up on hypercoagulable labs, consider referral to hematology outpatient (2) Deep vein thrombosis (DVT) of tibial vein of left lower extremity: no DVT above the knee, low risk of throwing further PE especially on Xarelto (3) Hypoxia: Placed on 2L nasal cannula oxygen, titrate to keep pulse ox around 95% removed oxygen, saturations 94% on room air, no dyspnea ambulated in the room without oxygen, he did not feel short of breath, saturations were 92% after walking on room air instructed him to take it easy for a few days, gradually increase activity (4) CKD (chronic kidney disease) stage 3, GFR 30-59 ml/min: Creatinine 1.68 upon admission, with recent range 1.62-1.66. Cr is 1.4 today (5) HTN (hypertension): For now, hold telmisartan and HCTZ as BP low normal off of them wait until he follows up with PCP to resume them with blood pressure check in office continue Labetalol Continue aspirin 81 mg daily (6) Hyperlipidemia: Continue simvastatin 20 mg daily Check a fasting lipid panel (7) Prediabetes: Glucose 106 upon admission. Would not perform Accu-Cheks unless morning blood sugar appears to be elevated Total Time Total Time Spent Total Time Spent (In Minutes): 38 Total Time Includes: Examination of the Patient, Discharge Planning and Medication Reconciliation Discharge Plan Discharge Items Patient Disposition: Home - Self-Care Reason For Visit: ELEVATED TROPONIN, B/L PE'S Discharge Diagnosis: Bilateral pulmonary emboli Left leg DVT Shortness of breath Elevated troponin due to pulmonary emboli Condition on Discharge: Good Goals: follow up with Dr. Pagan Activity: Per Instructions section Exercise/Sports: Gradually increase as tolerated Exercise Comment: take it easy for the next week Driving/Machine Use: No limitations Weightbearing: Full weightbearing Non-emergency contact: Primary Care Provider Call non-emergency contact if: you have any medication questions Follow-up/Referrals: Jaylen Pagan, [Primary Care Provider] - (one week) Diet: Regular Addtl Attending Provider Instructions: Medications: - XARELTO: blood thinner, take 15mg twice a day for 21 days, you received a dose in here this morning so next dose would be this evening after 21 days you will change to 20mg daily as we discussed, will need to take for 6-12 months, probably lean toward 12 months Bilateral pulmonary emboli, left lower leg DVT (below the knee) unprovoked, could be due to sitting a lot at work, would recommend getting up once an hour to walk around treated initially with heparin drip, changed to Xarelto 15mg twice a day for 21 days then 20mg daily hypercoagulable work up sent out, follow up with Dr. Pagan for results Hypertension: will hold HCTZ and Telmisartan for the time being as blood pressures were low normal, probably why you felt light headed follow up with Dr. Pagan next week and he can check your blood pressure do not resume without being told by him Pending Studies at Discharge: Yes Studies:: hypercoagulable panel Stand-Alone Forms: [facility], Smoking Cessation Medications and DC Order Prescriptions: New Xarelto 15 mg Tablet 15 mg PO BID 21 Days Qty: 42 RF: 0 Xarelto 20 mg tablet 20 mg PO DAILY Qty: 30 RF: 3 Continued simvastatin [Zocor] 20 mg tablet 20 mg PO QPM Qty: 90 RF: 3 labetalol 300 mg tablet 300 mg PO BID Qty: 180 RF: 3 aspirin [Adult Low Dose Aspirin] 81 mg tablet,delayed release (DR/EC) 81 mg PO QAM RF: 0 multivitamin [Multiple Vitamins] Tablet 1 tab PO QAM RF: 0 diclofenac sodium 1 % Gel 2 g TOPICAL BID RF: 0 Discontinued naproxen sodium [Aleve] 220 mg Tablet 440 mg PO Q12H PRN (Reason: Pain) RF: 0 telmisartan 80 mg tablet 80 mg PO PM RF: 0 hydrochlorothiazide 25 mg tablet 25 mg PO QAM RF: 0 Discharge Orders: Discharge Order (Routine); Ordered 12/28/20 Ordered By: Lorenzo Beltre Admission Data Admit Date/Time: 12/27/20 21:32 Attending Provider: Lorenzo Beltre Admit Provider: Matthew Stallings Primary Care Provider: Jaylen Pagan Other Providers: Matthew Stallings Other Interventions: Discharge Summary Assessment (RN) Last Done: 12/28/20 13:03 Coding Level of Care Code D/C Day Management >30 mins Diagnoses Pulmonary embolism I26.09 Acute cor pulmonale presence: with acute cor pulmonale Chronicity: acute Pulmonary embolism type: unspecified Deep vein thrombosis (DVT) of tibial vein of left lower extremity I82.442 Hypoxia R09.02 CKD (chronic kidney disease) stage 3, GFR 30-59 ml/min N18.30 HTN (hypertension) I10 Hyperlipidemia E78.5 Prediabetes R73.03
[2020-12-28] MEDS ORDERED: SIMVASTATIN 20 MG TAB PO SCH (21:00)
--- NOTE | 2020-12-30 12:08 | Electrocardiogram Report ---
Test Reason : Blood Pressure : / mmHG Vent. Rate : 097 BPM Atrial Rate : 097 BPM P-R Int : 182 ms QRS Dur : 088 ms QT Int : 362 ms P-R-T Axes : 046 012 000 degrees QTc Int : 459 ms Normal sinus rhythm Low voltage QRS Possible Anterolateral infarct , age undetermined Abnormal ECG When compared with ECG of 17-DEC-2004 11:27, Borderline criteria for Anterolateral infarct are now Present Confirmed by Alexander Noel ([id number]) on 12/30/2020 12:08:10 PM Referred By: Confirmed By:Alexander Noel
--- NOTE | 2020-12-30 13:10 | Electrocardiogram Report ---
Test Reason : Blood Pressure : / mmHG Vent. Rate : 081 BPM Atrial Rate : 081 BPM P-R Int : 178 ms QRS Dur : 088 ms QT Int : 414 ms P-R-T Axes : 029 037 018 degrees QTc Int : 480 ms Normal sinus rhythm Low voltage QRS Septal infarct (cited on or before 27-DEC-2020) Abnormal ECG When compared with ECG of 27-DEC-2020 14:09, (unconfirmed) No significant change was found Confirmed by Alexander Noel ([id number]) on 12/30/2020 1:10:16 PM Referred By: REFERRED SELF Confirmed By:Alexander Noel
[2021-01-02 05:37] LABS: Anti Cardiolipin Ab IgG <2.0 GPL-U/mL; Anti Cardiolipin Ab IgM <2.0 MPL-U/mL; Anti-Thrombin III Activity 78 % normal (80-135); B2 Glycoprotein IgG <2.0 U/mL (<20.0); B2 Glycoprotein IgM <2.0 U/mL (<20.0); PTT LA Screen 155 sec (<=40); Protein S Functional(Activity) 84 % (70-150)
[2021-01-02 14:28] LABS: Lupus Hex Phase (Rflxdonotord) Negative (Negative)
== END 2020-12-28 13:32 | disposition home or self-care (01) | DRG 175 ==
LOC: ED 13:27 → SUATTDRO 21:32 → 2E 21:32